=== PATIENT | male | born 1990 | race Caucasian/White ===

== ENCOUNTER 2018-01-11 08:30 | Emergency (ER) | payer MEDICAID, OTHER ==
[~2018-01-11] VITALS: Ht 182.9 cm; Wt 63.9 kg
[2018-01-11] MEDS ORDERED: METOCLOPRAMIDE 5 MG/ML, 2ML ONE (08:58)
[2018-01-11] MEDS ORDERED: MORPHINE SULFATE 4 MG/ML, 1ML ONE (08:58)
[2018-01-11] MEDS ORDERED: MORPHINE SULFATE 4 MG/ML, 1ML IVPush PRN (09:00)
[2018-01-11] MEDS ORDERED: SODIUM CHLORIDE FLUSH 10ML SYR IVF ONE (09:00)
[2018-01-11] MEDS ORDERED: METOCLOPRAMIDE 5 MG/ML, 2ML IVPush ONE (09:00)
[2018-01-11 09:20] LABS: BASOPHILS # (AUTO) 0.02 x10^3/uL (0-0.1); BASOPHILS % (AUTO) 0 % (0-1); EOSINOPHILS # (AUTO) 0.07 x10^3/uL (0-0.4); EOSINOPHILS % (AUTO) 1 % (1-7); LYMPHOCYTES % (AUTO) 13 % (22-44); MD NO; MEAN CORPUSCULAR HEMOGLOBIN 33.2 pg (27.5-34.5); MEAN CORPUSCULAR HGB CONC 34.1 g/dL (33.2-36.2); MEAN CORPUSCULAR VOLUME 97.3 fL (81-97); MEAN PLATELET VOLUME 8.9 fL (7.4-10.4); MONOCYTES # (AUTO) 0.51 x10^3/uL (0.2-0.8); MONOCYTES % (AUTO) 6 % (2-9); NEUTROPHILS # (AUTO) 7.33 x10^3/uL (1.8-6.8); NEUTROPHILS % (AUTO) 80 % (42-75); PLATELET COUNT 201 x10^3/uL (130-400); RED BLOOD COUNT 4.87 x10^6/uL (4.38-5.82); RED CELL DISTRIBUTION WIDTH 13.2 % (9.4-14.8)
[2018-01-11 09:30] LABS: ALANINE AMINOTRANSFERASE 58 U/L (12-78); ALBUMIN 3.9 g/dL (3.4-5.0); ANION GAP 8 mmol/L (5-15); CALCIUM 8.6 mg/dL (8.5-10.1); CHLORIDE 106 mmol/L (98-107)
[2018-01-11 09:33] LABS: ALKALINE PHOSPHATASE 79 U/L (45-117); BILIRUBIN,TOTAL 0.9 mg/dL (0.2-1.0); CREATININE 1.23 mg/dL (0.7-1.3)
[2018-01-11] MEDS ORDERED: ONDANSETRON ODT 4 MG ONE (09:47)
[2018-01-11] MEDS ORDERED: KETOROLAC 30 MG/1 ML ONE (09:47)
[2018-01-11] MEDS ORDERED: TAMSULOSIN 0.4 MG CAP.ER.24H ONE (09:48)
[2018-01-11] MEDS ORDERED: ONDANSETRON ODT 4 MG PO ONE (10:00)
[2018-01-11] MEDS ORDERED: TAMSULOSIN 0.4 MG CAP.ER.24H PO ONE (10:00)
[2018-01-11] MEDS ORDERED: KETOROLAC 30 MG/1 ML IVPush ONE (10:00)
[2018-01-11 11:20] LABS: CULTURE INDICATED? YES; MICROSCOPIC INDICATED
[2018-01-11 11:57] VITALS: BP 126/71
== END 2018-01-11 12:00 | disposition home or self-care (01) ==
LOC: ED 09:08
DX: N13.2 Hydronephrosis with renal and ureteral calculous obstruction (principal); R31.9 Hematuria, unspecified
CPT/HCPCS: 36415; 74176; 80053; 81001; 83690; 85025; 87086; 93005; 96374; 96375; 99285; J1885; J2765; Q0162

== ENCOUNTER 2019-01-21 14:17 | Emergency (ER) | payer MEDICAID, OTHER ==
[~2019-01-21] VITALS: Ht 182.9 cm; Wt 64.3 kg
[2019-01-21 14:37] LABS: BASOPHILS # (AUTO) 0.04 x10^3/uL (0-0.1); BASOPHILS % (AUTO) 1 % (0-1); EOSINOPHILS # (AUTO) 0.05 x10^3/uL (0-0.4); EOSINOPHILS % (AUTO) 1 % (1-7); LYMPHOCYTES # (AUTO) 1.19 x10^3/uL (1-3.4); LYMPHOCYTES % (AUTO) 16 % (22-44); MD NO; MEAN CORPUSCULAR HEMOGLOBIN 34.4 pg (27.5-34.5); MEAN CORPUSCULAR HGB CONC 33.2 g/dL (33.2-36.2); MEAN CORPUSCULAR VOLUME 103.5 fL (81-97); MEAN PLATELET VOLUME 8.5 fL (7.4-10.4); MONOCYTES # (AUTO) 0.43 x10^3/uL (0.2-0.8); MONOCYTES % (AUTO) 6 % (2-9); NEUTROPHILS # (AUTO) 5.77 x10^3/uL (1.8-6.8); NEUTROPHILS % (AUTO) 77 % (42-75); PLATELET COUNT 181 x10^3/uL (130-400); RED BLOOD COUNT 4.87 x10^6/uL (4.38-5.82); RED CELL DISTRIBUTION WIDTH 13.9 % (9.4-14.8)
[2019-01-21 14:49] LABS: ALANINE AMINOTRANSFERASE 48 U/L (12-78); ALBUMIN 4.5 g/dL (3.4-5.0); ANION GAP 7 mmol/L (5-15); CALCIUM 9.2 mg/dL (8.5-10.1); CHLORIDE 105 mmol/L (98-107)
[2019-01-21 14:52] LABS: ALKALINE PHOSPHATASE 112 U/L (45-117); BILIRUBIN,TOTAL 0.2 mg/dL (0.2-1.0); CREATININE 1.04 mg/dL (0.7-1.3); TOTAL PROTEIN 7.9 g/dL (6.4-8.2)
--- NOTE | 2019-01-21 17:17 | NUR ---
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
--- NOTE | 2019-01-21 17:47 | NUR ---
PT REPORTS TINGLING AND VISSUAL LOSS INTERMIT OVER THE PAST THREE WEEKS AO4 AMBULATES WELL
[2019-01-21] MEDS ORDERED: LORazepam 0.5MG TABLET ONE (18:07)
[2019-01-21] MEDS ORDERED: SODIUM CHLORIDE 0.9% 1,000ML IVBOLUS ONE (18:30)
[2019-01-21] MEDS ORDERED: LORazepam 0.5MG TABLET PO ONE (18:30)
--- NOTE | 2019-01-21 18:45 | NUR ---
BREAK RN: ATTEMPTED TO START IV. PT REFUSED. ERP AT BEDSIDE TO EDUCATE PT ON NEED FOR IV. PT CONTINUES TO REFUSE.
--- NOTE | 2019-01-21 19:15 | NUR ---
REFUSES SECOND EKG REPORTED THIS TO REPA TO BE A DC
--- NOTE | 2019-01-21 19:16 | NUR ---
BREAK RN: PT ALERT, INTERACTING WELL, NO S/S/ DISTRESS. PT CLEARED FOR DISCHARGE, AMBULATING WELL UPON DEPARTURE.
[2019-01-21 19:17] VITALS: BP 114/102
== END 2019-01-21 19:19 | disposition home or self-care (01) ==
LOC: ED 19:13
DX: F10.10 Alcohol abuse, uncomplicated (principal); E87.5 Hyperkalemia
CPT/HCPCS: 36415; 80053; 80307; 83735; 85025; 93005; 99284

== ENCOUNTER 2019-02-20 16:59 | Emergency (ER) | payer SELFPAY ==
[~2019-02-20] VITALS: Ht 182.9 cm; Wt 64.7 kg
[2019-02-20 17:17] VITALS: BP 143/93
== END 2019-02-20 18:09 | disposition left against medical advice (07) ==
LOC: ED 17:42
DX: S91.311A Laceration without foreign body, right foot, initial encounter (principal); F17.200 Nicotine dependence, unspecified, uncomplicated; X58.XXXA Exposure to other specified factors, initial encounter; Y93.89 Activity, other specified; Y92.830 Public park as the place of occurrence of the external cause; Y99.8 Other external cause status
CPT/HCPCS: 99281

== ENCOUNTER 2020-10-19 11:11 | Inpatient (IN) | payer OTHER ==
[~2020-10-19] VITALS: Ht 182.9 cm; Wt 69.0 kg
--- NOTE | 2020-10-19 11:30 | NUR ---
PT AMBULATED BACK TO ROOM AT THIS TIME. PT BIB MOM VIA POV. PER PT HE HAS HAD ABD PRESSURE RADIATING TO BACK FOR 2 DAYS. PT ALSO STARTED VOMITTING TODAY, PT TOOK 400MG MOTRIN AT 0700. PT RESTING IN GURNEY, CARDIAC MONITORING IN PLACE, PT'S MOM AT BEDSIDE, YENNI AT THIS TIME, PT STATES PAIN IS 10/10, WCTM.
[2020-10-19] MEDS ORDERED: ONDANSETRON 2MG/ML, 2ML IVPush ONE (12:00)
[2020-10-19] MEDS ORDERED: FAMOTIDINE 20 MG/2 ML IVPush ONE (12:00)
[2020-10-19] MEDS ORDERED: SODIUM CHLORIDE 0.9% 1,000ML IVBOLUS ONE ×2 (12:00→14:30)
[2020-10-19] MEDS ORDERED: ONDANSETRON 2MG/ML, 2ML ONE (12:01)
[2020-10-19] MEDS ORDERED: MORPHINE SULFATE 4 MG/ML, 1ML ONE (12:02)
[2020-10-19] MEDS ORDERED: FAMOTIDINE 20 MG/2 ML ONE (12:02)
[2020-10-19] MEDS: MORPHINE SULFATE 4 MG/ML, 1ML IVPush PRN ×2 (12:10→17:05)
[2020-10-19 12:50] LABS: BASOPHILS % (AUTO) 0 % (0-1); EOSINOPHILS % (AUTO) 0 % (1-7); LYMPHOCYTES % (AUTO) 5 % (22-44); MEAN CORPUSCULAR HEMOGLOBIN 35.4 pg (27.5-34.5); MEAN CORPUSCULAR HGB CONC 34.6 g/dL (33.2-36.2); MEAN PLATELET VOLUME 10.4 fL (7.4-10.4); MONOCYTES % (AUTO) 6 % (2-9); NEUTROPHILS % (AUTO) 89 % (42-75); RED CELL DISTRIBUTION WIDTH 13.8 % (9.4-14.8)
[2020-10-19 12:57] LABS: ALANINE AMINOTRANSFERASE 160 U/L (12-78); ALBUMIN 3.9 g/dL (3.4-5.0); ANION GAP 12 mmol/L (5-15); CALCIUM 9.2 mg/dL (8.5-10.1); CHLORIDE 105 mmol/L (98-107); CREATININE 0.96 mg/dL (0.7-1.3)
[2020-10-19 13:01] LABS: ALKALINE PHOSPHATASE 141 U/L (45-117); BILIRUBIN,TOTAL 1.3 mg/dL (0.2-1.0); TOTAL PROTEIN 6.7 g/dL (6.4-8.2)
[2020-10-19 13:25] LABS: PLATELET COUNT 130 x10^3/uL (130-400)
[2020-10-19 13:26] LABS: MD SCAN
[2020-10-19] MEDS ORDERED: HYDROmorphone 1 MG/ML, 1ML INJ IV ONE ×2 (13:30→15:30)
[2020-10-19] MEDS ORDERED: HYDROmorphone 1 MG/ML, 1ML INJ ONE ×2 (13:37→15:18)
[2020-10-19] MEDS ORDERED: OMNIPAQUE 350 MG/ML, 100ML BOTTLE ONE (14:01)
[2020-10-19] MEDS ORDERED: hydrALAzine 20 MG/ML, 1ML ONE (15:18)
--- NOTE | 2020-10-19 15:21 | NUR ---
PT TO GO TO MED TELE PER HOSPITALIST.
[2020-10-19] MEDS ORDERED: LABETALOL 5MG/ML, 20ML IVPush ONE (15:30)
[2020-10-19] MEDS ORDERED: hydrALAzine 20 MG/ML, 1ML IVPush PRN (15:30)
[2020-10-19] MEDS ORDERED: hydrALAzine 20 MG/ML, 1ML IV ONE (15:30)
[2020-10-19] MEDS ORDERED: NICOTINE 14MG/24 HR PATCH.TD24 TD ONE (15:30)
[2020-10-19 15:57] LABS: BASOPHILS % (AUTO) 0 % (0-1); EOSINOPHILS % (AUTO) 0 % (1-7); MONOCYTES % (AUTO) 4 % (2-9); RED BLOOD COUNT 4.69 x10^6/uL (4.38-5.82)
[2020-10-19 16:08] LABS: LYMPHOCYTES % (AUTO) 4 % (22-44); MEAN CORPUSCULAR HEMOGLOBIN 35.9 pg (27.5-34.5); MEAN CORPUSCULAR HGB CONC 35.4 g/dL (33.2-36.2); MEAN PLATELET VOLUME 11.1 fL (7.4-10.4); NEUTROPHILS % (AUTO) 91 % (42-75); PLATELET COUNT 82 x10^3/uL (130-400); RED CELL DISTRIBUTION WIDTH 13.6 % (9.4-14.8)
[2020-10-19 16:16] LABS: INTERNATIONAL NORMALIZED RATIO 1.1 (0.93-1.1); PROTHROMBIN TIME 11.8 Seconds (9.6-11.5)
[2020-10-19 16:31] LABS: MD SCAN
[2020-10-19 17:11] VITALS: BP 181/109
[2020-10-19] MEDS: ONDANSETRON 2MG/ML, 2ML IVPush PRN (17:13)
[2020-10-19] MEDS ORDERED: LABETALOL 5MG/ML, 20ML IVPush PRN (17:30)
[2020-10-19] MEDS: HYDROmorphone 2 MG/ML, 1ML IVPush PRN ×2 (18:13→21:17)
[2020-10-19] MEDS: LACTATED RINGERS 1,000 ML IV SCH (18:13)
[2020-10-19 18:25] VITALS: BP 160/111
[2020-10-19 20:25] VITALS: BP 162/101
[2020-10-19] MEDS ORDERED: DILTIAZEM 5 MG/ML, 5ML IVPush ONE (21:00)
[2020-10-19 21:06] VITALS: BP 134/90
[2020-10-19] MEDS ORDERED: DILTIAZEM 125 MG in SODIUM CHLORIDE 0.9% 100 ML IV SCH (23:00)
[2020-10-19] MEDS ORDERED: MAGNESIUM SULFATE PMX 4GM/100M 100 ML IVPB ONE (23:00)
[2020-10-19 23:56] LABS: MICROSCOPIC INDICATED
[2020-10-20 00:06] LABS: AMPHETAMINE SCREEN, URINE Negative (Negative); BARBITURATE SCREEN, URINE Negative (Negative); BENZODIAZEPINE SCREEN, URINE Negative (Negative); CANNABINOID SCREEN, URINE Positive (Negative); COCAINE SCREEN, URINE Negative (Negative); METHADONE SCREEN, URINE Negative (Negative); OPIATE SCREEN, URINE Positive (Negative)
[2020-10-20] MEDS: ONDANSETRON 2MG/ML, 2ML IVPush PRN ×2 (01:14→07:40)
[2020-10-20] MEDS: HYDROmorphone 2 MG/ML, 1ML IVPush PRN ×7 (01:15→19:39)
[2020-10-20 01:18] VITALS: BP 159/128
[2020-10-20 03:18] VITALS: BP 164/104
[2020-10-20 05:56] LABS: CHLORIDE 104 mmol/L (98-107)
[2020-10-20 06:09] LABS: ALANINE AMINOTRANSFERASE 117 U/L (12-78); ALBUMIN 3.6 g/dL (3.4-5.0); ALKALINE PHOSPHATASE 113 U/L (45-117); ANION GAP 10 mmol/L (5-15); BILIRUBIN,TOTAL 0.7 mg/dL (0.2-1.0); CALCIUM 8.8 mg/dL (8.5-10.1); CHOL/HDL RATIO 1.7; CHOLESTEROL, TOTAL 128 mg/dL (140-239); CREATININE 0.74 mg/dL (0.7-1.3); HDL CHOL % 60 % (26-37); HDL CHOLESTEROL (DIRECT) 77 mg/dL (40-60); LDL CHOLESTEROL,CALCULATED 37 mg/dL (54-169); LDL/HDL RATIO 0.5 (0.5-3.0); TOTAL PROTEIN 6.7 g/dL (6.4-8.2); TRIGLYCERIDES 70 mg/dL (50-200); VLDL CHOLESTEROL 14 mg/dL (0-25)
[2020-10-20 07:41] VITALS: BP 147/100
[2020-10-20] MEDS: LACTATED RINGERS 1,000 ML IV SCH ×2 (07:59→18:38)
[2020-10-20] MEDS: DILTIAZEM 90 MG CAP.ER.12H PO SCH ×2 (07:59→19:09)
[2020-10-20] MEDS: LOSARTAN 50MG TABLET PO SCH (07:59)
[2020-10-20 10:53] VITALS: BP 136/83
[2020-10-20] MEDS: NICOTINE 14MG/24 HR PATCH.TD24 TD SCH (11:02)
[2020-10-20] MEDS ORDERED: LORazepam 2 MG/ML, 1ML IVPush ONE (12:30)
[2020-10-20 15:24] LABS: ANA SCREEN NEGATIVE (Negative)
[2020-10-20 17:13] LABS: TROPONIN I < 0.015 ng/mL (0.000-0.045)
[2020-10-20] MEDS ORDERED: CHLORDIAZEPOXIDE 25 MG CAPSULE PO PRN (19:30)
[2020-10-20] MEDS ORDERED: LORazepam 2 MG/ML, 1ML IVPush PRN (19:30)
[2020-10-20 19:35] VITALS: BP 150/93
[2020-10-20] MEDS ORDERED: TEMAZEPAM 15 MG CAPSULE PO ONE (22:00)
[2020-10-21] MEDS: HYDROmorphone 2 MG/ML, 1ML IVPush PRN ×5 (00:50→17:20)
[2020-10-21 02:00] VITALS: BP 146/89
[2020-10-21] MEDS: LACTATED RINGERS 1,000 ML IV SCH ×3 (02:34→19:21)
[2020-10-21 06:21] VITALS: BP 149/87
[2020-10-21 06:43] LABS: BASOPHILS % (AUTO) 0 % (0-1); EOSINOPHILS % (AUTO) 1 % (1-7); LYMPHOCYTES % (AUTO) 8 % (22-44); MEAN CORPUSCULAR HEMOGLOBIN 35.5 pg (27.5-34.5); MEAN PLATELET VOLUME 10.8 fL (7.4-10.4); MONOCYTES % (AUTO) 6 % (2-9); NEUTROPHILS % (AUTO) 84 % (42-75); RED BLOOD COUNT 4.45 x10^6/uL (4.38-5.82); RED CELL DISTRIBUTION WIDTH 13.9 % (9.4-14.8)
[2020-10-21 06:58] LABS: CHLORIDE 103 mmol/L (98-107)
[2020-10-21 07:04] LABS: ALANINE AMINOTRANSFERASE 69 U/L (12-78); ALBUMIN 2.8 g/dL (3.4-5.0); ALKALINE PHOSPHATASE 96 U/L (45-117); ANION GAP 6 mmol/L (5-15); BILIRUBIN,TOTAL 0.8 mg/dL (0.2-1.0); CALCIUM 8.6 mg/dL (8.5-10.1); CREATININE 0.64 mg/dL (0.7-1.3); TOTAL PROTEIN 5.6 g/dL (6.4-8.2)
[2020-10-21 07:52] LABS: PLATELET COUNT 71 x10^3/uL (130-400)
[2020-10-21 07:53] LABS: <PLATELET ESTIMATE> DECREASED; ANISOCYTOSIS 1+; LARGE PLATELETS 1+; MD MORPH REVIEW ONLY
[2020-10-21] MEDS ORDERED: PANTOPRAZOLE 40 MG IV IVPush SCH (09:00)
[2020-10-21] MEDS: DILTIAZEM 120 MG CAP.ER.12H PO SCH ×2 (09:18→21:13)
[2020-10-21] MEDS: LOSARTAN 50MG TABLET PO SCH (09:18)
[2020-10-21] MEDS: THIAMINE 100 MG in SODIUM CHLORIDE 0.9% 50 ML IV SCH (09:19)
[2020-10-21 09:38] LABS: HCT (SEDRATE) 46.5 % (39.2-51.8)
[2020-10-21 10:38] LABS: TROPONIN I < 0.015 ng/mL (0.000-0.045)
[2020-10-21] MEDS: NICOTINE 14MG/24 HR PATCH.TD24 TD SCH (11:00)
[2020-10-21 13:29] VITALS: BP 130/76
[2020-10-21 15:40] LABS: TROPONIN I < 0.015 ng/mL (0.000-0.045)
[2020-10-21] MEDS: CHLORDIAZEPOXIDE 25 MG CAPSULE PO SCH ×2 (16:54→21:13)
[2020-10-21 19:39] VITALS: BP 140/95
[2020-10-21 21:56] LABS: TROPONIN I < 0.015 ng/mL (0.000-0.045)
[2020-10-22] MEDS: LACTATED RINGERS 1,000 ML IV SCH ×5 (00:26→23:30)
[2020-10-22] MEDS: HYDROmorphone 2 MG/ML, 1ML IVPush PRN ×7 (00:27→23:33)
[2020-10-22 00:34] VITALS: BP 135/91
[2020-10-22] MEDS: PANTOPRAZOLE 40MG TABLET PO SCH (05:28)
[2020-10-22 06:16] LABS: BASOPHILS % (AUTO) 0 % (0-1); EOSINOPHILS % (AUTO) 2 % (1-7); LYMPHOCYTES % (AUTO) 13 % (22-44); MEAN CORPUSCULAR HEMOGLOBIN 35.3 pg (27.5-34.5); MEAN CORPUSCULAR HGB CONC 34.3 g/dL (33.2-36.2); MEAN PLATELET VOLUME 11.1 fL (7.4-10.4); MONOCYTES % (AUTO) 11 % (2-9); NEUTROPHILS % (AUTO) 73 % (42-75); PLATELET COUNT 58 x10^3/uL (130-400); RED BLOOD COUNT 3.88 x10^6/uL (4.38-5.82); RED CELL DISTRIBUTION WIDTH 13.9 % (9.4-14.8)
[2020-10-22 06:19] LABS: ALANINE AMINOTRANSFERASE 52 U/L (12-78); ALBUMIN 2.5 g/dL (3.4-5.0); ANION GAP 5 mmol/L (5-15); CALCIUM 7.9 mg/dL (8.5-10.1); CHLORIDE 106 mmol/L (98-107); CREATININE 0.71 mg/dL (0.7-1.3)
[2020-10-22 06:22] LABS: ALKALINE PHOSPHATASE 84 U/L (45-117); BILIRUBIN,TOTAL 0.7 mg/dL (0.2-1.0); TOTAL PROTEIN 5.3 g/dL (6.4-8.2)
[2020-10-22] MEDS: POTASSIUM CHLORIDE 40 MEQ in SODIUM CHLORIDE 0.9% 500 ML IV ONE ×2 (07:30→08:21)
[2020-10-22 07:36] LABS: MD SCAN
[2020-10-22 08:10] VITALS: BP 138/82
[2020-10-22] MEDS: THIAMINE 100 MG in SODIUM CHLORIDE 0.9% 50 ML IV SCH (08:21)
[2020-10-22] MEDS: DILTIAZEM 120 MG CAP.ER.12H PO SCH ×2 (08:24→20:16)
[2020-10-22] MEDS: LOSARTAN 50MG TABLET PO SCH (08:24)
[2020-10-22] MEDS: CHLORDIAZEPOXIDE 25 MG CAPSULE PO SCH ×3 (08:30→20:16)
[2020-10-22] MEDS ORDERED: POTASSIUM CHLORIDE 20 MEQ TAB.ER.PRT PO ONE (09:00)
[2020-10-22] MEDS: NICOTINE 14MG/24 HR PATCH.TD24 TD SCH (11:17)
[2020-10-22 12:07] VITALS: BP 132/79
[2020-10-22] MEDS ORDERED: MAGNESIUM SULFATE PMX 2GM/50ML 50 ML IV ONE (17:30)
[2020-10-22 20:08] VITALS: BP 138/79
[2020-10-23 00:45] VITALS: BP 123/74
[2020-10-23] MEDS: LACTATED RINGERS 1,000 ML IV SCH (04:00)
[2020-10-23] MEDS: HYDROmorphone 2 MG/ML, 1ML IVPush PRN ×2 (04:51→10:06)
[2020-10-23] MEDS: PANTOPRAZOLE 40MG TABLET PO SCH (06:36)
[2020-10-23 07:51] VITALS: BP 136/91
[2020-10-23 08:26] LABS: BASOPHILS % (AUTO) 1 % (0-1); EOSINOPHILS % (AUTO) 2 % (1-7); LYMPHOCYTES % (AUTO) 15 % (22-44); MEAN CORPUSCULAR HEMOGLOBIN 35.6 pg (27.5-34.5); MEAN CORPUSCULAR HGB CONC 34.5 g/dL (33.2-36.2); MEAN PLATELET VOLUME 9.5 fL (7.4-10.4); MONOCYTES % (AUTO) 13 % (2-9); NEUTROPHILS % (AUTO) 69 % (42-75); PLATELET COUNT 122 x10^3/uL (130-400); RED BLOOD COUNT 3.93 x10^6/uL (4.38-5.82); RED CELL DISTRIBUTION WIDTH 13.7 % (9.4-14.8)
[2020-10-23 08:35] LABS: ALANINE AMINOTRANSFERASE 46 U/L (12-78); ALBUMIN 2.7 g/dL (3.4-5.0); ANION GAP 7 mmol/L (5-15); CALCIUM 8.5 mg/dL (8.5-10.1); CHLORIDE 105 mmol/L (98-107); CREATININE 0.73 mg/dL (0.7-1.3); INTERNATIONAL NORMALIZED RATIO 1.01 (0.93-1.1); PROTHROMBIN TIME 10.8 Seconds (9.6-11.5)
[2020-10-23 08:38] LABS: ALKALINE PHOSPHATASE 87 U/L (45-117); BILIRUBIN,TOTAL 0.6 mg/dL (0.2-1.0)
[2020-10-23 09:00] LABS: MD SCAN
[2020-10-23] MEDS: CHLORDIAZEPOXIDE 25 MG CAPSULE PO SCH (09:57)
[2020-10-23] MEDS: THIAMINE 100 MG in SODIUM CHLORIDE 0.9% 50 ML IV SCH (09:57)
[2020-10-23] MEDS: NICOTINE 14MG/24 HR PATCH.TD24 TD SCH (09:57)
[2020-10-23] MEDS: LOSARTAN 50MG TABLET PO SCH (09:57)
[2020-10-23] MEDS: DILTIAZEM 120 MG CAP.ER.12H PO SCH (09:57)
[2020-10-23 12:20] VITALS: BP 127/77
[2020-10-23] MEDS ORDERED: LOSA50TA2 PO (13:16)
[2020-10-23] MEDS ORDERED: NICO-486 TD (13:16)
[2020-10-23] MEDS ORDERED: PANT40TA6 PO (13:16)
[2020-10-23] MEDS ORDERED: HYDR-826 PO (13:16)
[2020-10-23] MEDS ORDERED: DILT120C11 PO (13:16)
[2020-10-23] MEDS ORDERED: HYDR-3248 PO ×2 (13:16→13:28)
[2020-10-23] MEDS ORDERED: HYDROcodone/APAP 5/325 TABLET ONE (14:34)
[2020-10-23] MEDS ORDERED: HYDROcodone/APAP 5/325 TABLET PO PRN (15:00)
== END 2020-10-23 16:41 | disposition home or self-care (01) | DRG 439 ==
LOC: ED 11:42 → EDIP 14:35 → 4WST 16:46
PROVIDERS: ADMIT Internal Medicine; ATTEND Hospitalist
DX: K85.20 Alcohol induced acute pancreatitis without necrosis or infection (principal); I16.1 Hypertensive emergency; D75.89 Other specified diseases of blood and blood-forming organs; K85.00 Idiopathic acute pancreatitis without necrosis or infection; F10.129 Alcohol abuse with intoxication, unspecified; F17.200 Nicotine dependence, unspecified, uncomplicated; I48.91 Unspecified atrial fibrillation; K76.0 Fatty (change of) liver, not elsewhere classified; Y90.9 Presence of alcohol in blood, level not specified; Z71.41 Alcohol abuse counseling and surveillance of alcoholic
CPT/HCPCS: 36415; 71045; 74177; 74181; 76700; 80053; 80061; 80074; 80307; 80320; 81001; 82787; 82962; 83036; 83690; 83735; 84100; 84443; 84484; 85025; 85610; 85651; 86038; 86140; 87040; 93005; 93306; 93356; 96374; 99285; G0378; J1170; J2405; J3411; J3480; Q9967; C9113; G0480; J0360; J2060; J2270; J3475; J7030; J7040; J7120

== ENCOUNTER 2020-11-24 07:40 | Inpatient (IN) | payer OTHER ==
[~2020-11-24] VITALS: Ht 182.9 cm; Wt 61.7 kg
[2020-11-24] VITALS (7 sets, daily range): BP systolic 127–193; BP diastolic 89–120
[~2020-11-24 07:40] MED LIST: DILT120C11 PO; HYDR-3248 PO; HYDR-826 PO; LOSA50TA2 PO; METO25TA35 PO; NICO-486 TD; PANT40TA6 PO
[2020-11-24] MEDS ORDERED: ONDANSETRON 2MG/ML, 2ML IVPush ONE (08:30)
[2020-11-24] MEDS ORDERED: SODIUM CHLORIDE 0.9% 1,000ML IVBOLUS ONE (08:30)
[2020-11-24] MEDS ORDERED: SODIUM CHLORIDE FLUSH 10ML SYR IVF ONE (08:30)
[2020-11-24] MEDS ORDERED: ONDANSETRON 2MG/ML, 2ML ONE (08:35)
[2020-11-24] MEDS ORDERED: MORPHINE SULFATE 4 MG/ML, 1ML ONE ×2 (08:35→09:57)
[2020-11-24] MEDS: MORPHINE SULFATE 4 MG/ML, 1ML IVPush PRN ×2 (08:46→10:00)
[2020-11-24 09:05] LABS: MICROSCOPIC INDICATED
[2020-11-24 09:09] LABS: BASOPHILS % (AUTO) 0 % (0-1); EOSINOPHILS % (AUTO) 0 % (1-7); LYMPHOCYTES % (AUTO) 6 % (22-44); MEAN CORPUSCULAR HEMOGLOBIN 34.5 pg (27.5-34.5); MEAN CORPUSCULAR HGB CONC 34.2 g/dL (33.2-36.2); MEAN PLATELET VOLUME 10.6 fL (7.4-10.4); MONOCYTES % (AUTO) 8 % (2-9); NEUTROPHILS % (AUTO) 86 % (42-75); PLATELET COUNT 137 x10^3/uL (130-400); RED BLOOD COUNT 4.77 x10^6/uL (4.38-5.82); RED CELL DISTRIBUTION WIDTH 13.6 % (9.4-14.8)
[2020-11-24 09:16] LABS: ALANINE AMINOTRANSFERASE 103 U/L (12-78); ALBUMIN 4.4 g/dL (3.4-5.0); ANION GAP 12 mmol/L (5-15); CALCIUM 9.6 mg/dL (8.5-10.1); CHLORIDE 101 mmol/L (98-107); CREATININE 0.79 mg/dL (0.7-1.3)
[2020-11-24 09:18] LABS: ALKALINE PHOSPHATASE 130 U/L (45-117); BILIRUBIN,TOTAL 1.3 mg/dL (0.2-1.0); TOTAL PROTEIN 7.8 g/dL (6.4-8.2)
[2020-11-24 09:27] LABS: MD SCAN
[2020-11-24] MEDS ORDERED: ACETAMINOPHEN 325 MG TABLET PO PRN (10:00)
[2020-11-24] MEDS ORDERED: ONDANSETRON ODT 4 MG PO PRN (10:00)
[2020-11-24] MEDS ORDERED: ENALAPRILAT 1.25 MG/ML, 2ML IVPush PRN (10:00)
[2020-11-24] MEDS ORDERED: BACLOFEN 10 MG TABLET PO PRN (10:00)
[2020-11-24] MEDS ORDERED: BUTALB/APAP/CAFFEINE 50MG/325MG/40MG PO PRN (10:00)
[2020-11-24] MEDS: D5%-0.45NACL+KCL 20MEQ 1,000 ML IV SCH ×2 (10:00→20:08)
[2020-11-24] MEDS: HYDROmorphone 2 MG/ML, 1ML IVPush PRN ×6 (10:38→23:51)
[2020-11-24] MEDS: LABETALOL 5MG/ML, 20ML IVPush PRN ×2 (13:10→15:58)
[2020-11-24] MEDS ORDERED: ENALAPRILAT 1.25 MG/ML, 1ML ONE (14:04)
[2020-11-24] MEDS: MELATONIN 5 MG TABLET PO SCH (21:00)
[2020-11-24] MEDS: ONDANSETRON 2MG/ML, 2ML IVPush PRN (23:51)
[2020-11-25 00:06] VITALS: BP 134/85
[2020-11-25] MEDS: HYDROmorphone 2 MG/ML, 1ML IVPush PRN ×6 (03:14→23:16)
[2020-11-25 05:23] LABS: BASOPHILS % (AUTO) 0 % (0-1); EOSINOPHILS % (AUTO) 1 % (1-7); LYMPHOCYTES % (AUTO) 5 % (22-44); MEAN CORPUSCULAR HEMOGLOBIN 34.3 pg (27.5-34.5); MEAN CORPUSCULAR HGB CONC 33.5 g/dL (33.2-36.2); MEAN PLATELET VOLUME 10.4 fL (7.4-10.4); MONOCYTES % (AUTO) 6 % (2-9); NEUTROPHILS % (AUTO) 88 % (42-75); PLATELET COUNT 101 x10^3/uL (130-400); RED BLOOD COUNT 4.45 x10^6/uL (4.38-5.82); RED CELL DISTRIBUTION WIDTH 13.6 % (9.4-14.8)
[2020-11-25 05:27] LABS: ANION GAP 4 mmol/L (5-15); CHLORIDE 100 mmol/L (98-107); CREATININE 0.68 mg/dL (0.7-1.3)
[2020-11-25 06:12] LABS: MD SCAN
[2020-11-25] MEDS: D5%-0.45NACL+KCL 20MEQ 1,000 ML IV SCH ×2 (06:33→23:10)
[2020-11-25 07:54] VITALS: BP 115/73
[2020-11-25] MEDS ORDERED: MAGNESIUM SULFATE PMX 2GM/50ML 50 ML IV ONE (08:30)
[2020-11-25 08:55] LABS: CHOL/HDL RATIO 1.8; LDL/HDL RATIO 0.6 (0.5-3.0)
[2020-11-25] MEDS: SENNA/DOCUSATE TABLET PO SCH (08:59)
[2020-11-25] MEDS ORDERED: NICOTINE 14MG/24 HR PATCH.TD24 TD ONE (11:00)
[2020-11-25] MEDS ORDERED: SODIUM CHLORIDE 0.9% 1,000ML IV ONE (12:30)
[2020-11-25 12:35] VITALS: BP 115/72
[2020-11-25 18:49] VITALS: BP 118/81
[2020-11-25] MEDS: ONDANSETRON 2MG/ML, 2ML IVPush PRN (19:59)
[2020-11-25] MEDS: MELATONIN 5 MG TABLET PO SCH (21:20)
[2020-11-25] MEDS: ENOXAPARIN 40 MG/0.4 ML SQ SCH (21:25)
[2020-11-26 01:19] VITALS: BP 133/72
[2020-11-26] MEDS: HYDROmorphone 2 MG/ML, 1ML IVPush PRN ×4 (04:09→22:07)
[2020-11-26 05:24] LABS: BASOPHILS % (AUTO) 1 % (0-1); EOSINOPHILS % (AUTO) 3 % (1-7); LYMPHOCYTES % (AUTO) 19 % (22-44); MEAN CORPUSCULAR HEMOGLOBIN 34.5 pg (27.5-34.5); MEAN CORPUSCULAR HGB CONC 33.5 g/dL (33.2-36.2); MEAN PLATELET VOLUME 10.9 fL (7.4-10.4); MONOCYTES % (AUTO) 9 % (2-9); NEUTROPHILS % (AUTO) 69 % (42-75); PLATELET COUNT 79 x10^3/uL (130-400); RED BLOOD COUNT 3.83 x10^6/uL (4.38-5.82); RED CELL DISTRIBUTION WIDTH 13.6 % (9.4-14.8)
[2020-11-26 05:31] LABS: ALBUMIN 2.9 g/dL (3.4-5.0); ANION GAP 3 mmol/L (5-15); CALCIUM 8.6 mg/dL (8.5-10.1); CHLORIDE 103 mmol/L (98-107)
[2020-11-26 05:33] LABS: CREATININE 0.64 mg/dL (0.7-1.3)
[2020-11-26 05:58] LABS: MD SCAN
[2020-11-26 07:00] VITALS: BP 144/81
[2020-11-26] MEDS ORDERED: POTASSIUM PHOSPHATE 44 MEQ in SODIUM CHLORIDE 0.9% 500 ML IV ONE (07:30)
[2020-11-26] MEDS: SENNA/DOCUSATE TABLET PO SCH (08:27)
[2020-11-26] MEDS ORDERED: MAGNESIUM HYDROXIDE 8%, 30ML UDC PO PRN (10:00)
[2020-11-26] MEDS: D5%-0.45NACL+KCL 20MEQ 1,000 ML IV SCH ×2 (10:30→19:03)
[2020-11-26] MEDS: NICOTINE 14MG/24 HR PATCH.TD24 TD SCH (10:35)
[2020-11-26 12:26] VITALS: BP 138/79
[2020-11-26 19:05] VITALS: BP 136/89
[2020-11-26] MEDS: ENOXAPARIN 40 MG/0.4 ML SQ SCH (21:11)
[2020-11-26] MEDS: MELATONIN 5 MG TABLET PO SCH (21:11)
[2020-11-27 00:26] VITALS: BP 117/76
[2020-11-27] MEDS: D5%-0.45NACL+KCL 20MEQ 1,000 ML IV SCH ×2 (05:33→16:00)
[2020-11-27 06:32] VITALS: BP 135/92
[2020-11-27] MEDS: HYDROmorphone 2 MG/ML, 1ML IVPush PRN (08:39)
[2020-11-27] MEDS: SENNA/DOCUSATE TABLET PO SCH (08:39)
[2020-11-27] MEDS: NICOTINE 14MG/24 HR PATCH.TD24 TD SCH (08:40)
[2020-11-27 13:39] VITALS: BP 142/90
[2020-11-27] MEDS ORDERED: OXYC5TAB2 PO (13:39)
[2020-11-27] MEDS ORDERED: OXYC5TAB98 PO (13:41)
== END 2020-11-27 16:56 | disposition home or self-care (01) | DRG 640 ==
LOC: ED 07:51 → EDIP 09:35 → 3N 10:13
PROVIDERS: ADMIT Family Medicine; ATTEND Family Medicine
DX: E87.1 Hypo-osmolality and hyponatremia (principal); K85.90 Acute pancreatitis without necrosis or infection, unspecified; N39.0 Urinary tract infection, site not specified; D75.89 Other specified diseases of blood and blood-forming organs; E83.42 Hypomagnesemia; E86.0 Dehydration; F10.10 Alcohol abuse, uncomplicated; F12.90 Cannabis use, unspecified, uncomplicated; F17.210 Nicotine dependence, cigarettes, uncomplicated; Z79.899 Other long term (current) drug therapy; E83.39 Other disorders of phosphorus metabolism; Z79.891 Long term (current) use of opiate analgesic
CPT/HCPCS: 36415; 80048; 80053; 80061; 80069; 81001; 83036; 83690; 83735; 85025; 87086; 93005; 99285; G0378; J1170; J1650; J2405; J2270; J3475; J3480; J7030; J7040

== ENCOUNTER 2021-04-03 01:26 | Inpatient (IN) | payer MEDICAID ==
[~2021-04-03] VITALS: Ht 182.9 cm; Wt 65.9 kg
[~2021-04-03 01:26] MED LIST changes: +OXYC5TAB2 PO; +OXYC5TAB98 PO
--- NOTE | 2021-04-03 01:36 | NUR ---
BIBA FOR LUQ ABD PAIN STARTING 3 DAYS AGO. +N/V. PT STATES IT FEELS LIKE PANCREATITIS. ADMITS TO DRINKING 1-2 BEERS A WEEK WITH LAST BEER BEING 3 DAYS AGO. PT RECEIVED 200 MG FENTANYL EN ROUTE AND 4 MG ZOFRAN AND 250 ML NS WITH IMPROVEMENT OF PAIN FROM 04/28 TO 02/25.
[2021-04-03 02:25] LABS: BASOPHILS % (AUTO) 0 % (0-1); EOSINOPHILS % (AUTO) 0 % (1-7); LYMPHOCYTES % (AUTO) 5 % (22-44); MEAN CORPUSCULAR HEMOGLOBIN 32.4 pg (27.5-34.5); MEAN CORPUSCULAR HGB CONC 34.4 g/dL (33.2-36.2); MEAN PLATELET VOLUME 9.4 fL (7.4-10.4); MONOCYTES % (AUTO) 6 % (2-9); NEUTROPHILS % (AUTO) 88 % (42-75); PLATELET COUNT 237 x10^3/uL (130-400); RED BLOOD COUNT 4.96 x10^6/uL (4.38-5.82); RED CELL DISTRIBUTION WIDTH 13.6 % (9.4-14.8)
[2021-04-03] MEDS ORDERED: MORPHINE SULFATE 4 MG/ML, 1ML ONE (02:25)
[2021-04-03] MEDS ORDERED: FAMOTIDINE 20 MG/2 ML ONE (02:25)
[2021-04-03] MEDS ORDERED: ONDANSETRON 2MG/ML, 2ML ONE (02:25)
[2021-04-03 02:29] LABS: ALANINE AMINOTRANSFERASE 50 U/L (12-78); ANION GAP 14 mmol/L (5-15); CALCIUM 9.3 mg/dL (8.5-10.1); CHLORIDE 104 mmol/L (98-107); CREATININE 0.88 mg/dL (0.7-1.3)
[2021-04-03] MEDS: MORPHINE SULFATE 4 MG/ML, 1ML IVPush PRN ×2 (02:29→05:02)
[2021-04-03] MEDS ORDERED: THIAMINE 200 MG in SODIUM CHLORIDE 0.9% 50 ML IV ONE (02:30)
[2021-04-03] MEDS ORDERED: FAMOTIDINE 20 MG/2 ML IVPush ONE (02:30)
[2021-04-03] MEDS ORDERED: SODIUM CHLORIDE 0.9% 1,000ML IVBOLUS ONE (02:30)
[2021-04-03] MEDS ORDERED: ONDANSETRON 2MG/ML, 2ML IVPush ONE (02:30)
[2021-04-03] MEDS ORDERED: SODIUM CHLORIDE FLUSH 10ML SYR IVF ONE (02:30)
[2021-04-03 02:50] LABS: ALKALINE PHOSPHATASE 107 U/L (45-117); BILIRUBIN,TOTAL 0.7 mg/dL (0.2-1.0); TOTAL PROTEIN 7.5 g/dL (6.4-8.2)
--- NOTE | 2021-04-03 02:52 | NUR ---
REPORT GIVEN TO TARA MOSHER
--- NOTE | 2021-04-03 03:48 | NUR ---
NOTIFIED HOSPITALIST OF PT REQUEST FOR PAIN MEDS. SEE EMAR FOR NEW ORDERS
[2021-04-03] MEDS ORDERED: HYDROmorphone 1 MG/ML, 1ML INJ IV ONE (04:00)
[2021-04-03] MEDS ORDERED: MELATONIN 5 MG TABLET PO PRN (04:00)
[2021-04-03] MEDS ORDERED: HYDROmorphone 2 MG/ML, 1ML IVPush PRN (04:00)
[2021-04-03] MEDS ORDERED: DOCUSATE 100 MG CAPSULE PO PRN (04:00)
[2021-04-03] MEDS ORDERED: BISACODYL 10 MG SUPP PR PRN (04:00)
[2021-04-03] MEDS ORDERED: LORazepam 1MG TABLET PO PRN (04:00)
[2021-04-03] MEDS ORDERED: POTASSIUM CHLORIDE 10 MEQ in LACTATED RINGERS 1,000 ML IV SCH (04:00)
[2021-04-03] MEDS ORDERED: OXYcodone IR 5MG TABLET PO PRN (04:00)
[2021-04-03] MEDS ORDERED: KETOROLAC 30 MG/1 ML IV PRN (04:00)
[2021-04-03] MEDS ORDERED: ACETAMINOPHEN 650 MG SUPP PR PRN (04:00)
[2021-04-03] MEDS ORDERED: ACETAMINOPHEN 325 MG TABLET PO PRN (04:00)
[2021-04-03] MEDS ORDERED: BACLOFEN 10 MG TABLET PO PRN (04:00)
[2021-04-03] MEDS ORDERED: LORazepam 2 MG/ML, 1ML IV PRN ×2 (04:00)
[2021-04-03] MEDS ORDERED: LORazepam 0.5MG TABLET PO PRN (04:00)
[2021-04-03] MEDS ORDERED: LABETALOL 5MG/ML, 20ML IVPush PRN (04:00)
[2021-04-03 04:55] VITALS: BP 195/105
[2021-04-03] MEDS: ENOXAPARIN 40 MG/0.4 ML SQ SCH (05:23)
[2021-04-03] MEDS: POTASSIUM CHLORIDE 20 MEQ, MAGNESIUM SULFATE 1 GM, FOLIC ACID 1 MG, THIAMINE 200 MG, MV... IV SCH (06:26)
[2021-04-03 06:42] VITALS: BP 123/72
[2021-04-03] MEDS ORDERED: MAGNESIUM SULFATE PMX 2GM/50ML 50 ML IV ONE (08:30)
[2021-04-03] MEDS: FAMOTIDINE 20 MG/2 ML IVPush SCH ×2 (09:39→20:06)
[2021-04-03] MEDS: OXYcodone IR 5MG TABLET PO PRN ×5 (09:39→22:36)
[2021-04-03] MEDS: LACTOBACILLUS CHEW TABLET PO SCH ×3 (09:39→20:08)
[2021-04-03] MEDS: MULTIVITAMINS/MINERALS TABLET PO SCH (09:39)
[2021-04-03] MEDS: ONDANSETRON 2MG/ML, 2ML IVPush PRN ×2 (09:57→16:02)
[2021-04-03] MEDS: KETOROLAC 30 MG/1 ML IV PRN ×3 (11:09→22:36)
[2021-04-03] MEDS: NICOTINE 21 MG/24 HR PATCH.TD24 TD SCH (11:12)
[2021-04-03] MEDS: morphine SULFATE 10 MG/ML, 1ML IVPush PRN ×3 (11:55→12:36)
[2021-04-03 12:32] VITALS: BP 181/109
[2021-04-03] MEDS ORDERED: morphine SULFATE 10 MG/ML, 1ML IVPush PRN (13:00)
[2021-04-03] MEDS: HYDROmorphone 1 MG/ML, 1ML INJ IV PRN ×2 (13:59→20:06)
[2021-04-03] MEDS: SODIUM CHLORIDE 0.9% 1,000 ML IV SCH (15:34)
[2021-04-03 20:30] VITALS: BP 172/89
[2021-04-04 00:53] VITALS: BP 126/79
[2021-04-04] MEDS: HYDROmorphone 1 MG/ML, 1ML INJ IV PRN ×4 (02:27→21:05)
[2021-04-04] MEDS: ONDANSETRON 2MG/ML, 2ML IVPush PRN ×4 (05:09→23:39)
[2021-04-04] MEDS: KETOROLAC 30 MG/1 ML IV PRN ×4 (05:10→23:40)
[2021-04-04] MEDS: OXYcodone IR 5MG TABLET PO PRN ×5 (05:10→23:39)
[2021-04-04] MEDS: ENOXAPARIN 40 MG/0.4 ML SQ SCH (05:12)
[2021-04-04] MEDS: POTASSIUM CHLORIDE 20 MEQ, MAGNESIUM SULFATE 1 GM, FOLIC ACID 1 MG, THIAMINE 200 MG, MV... IV SCH (06:16)
[2021-04-04 07:32] LABS: BASOPHILS % (AUTO) 0 % (0-1); EOSINOPHILS % (AUTO) 1 % (1-7); LYMPHOCYTES % (AUTO) 7 % (22-44); MEAN CORPUSCULAR HEMOGLOBIN 32.5 pg (27.5-34.5); MEAN CORPUSCULAR HGB CONC 34.3 g/dL (33.2-36.2); MEAN PLATELET VOLUME 9.8 fL (7.4-10.4); MONOCYTES % (AUTO) 7 % (2-9); NEUTROPHILS % (AUTO) 86 % (42-75); PLATELET COUNT 119 x10^3/uL (130-400); RED CELL DISTRIBUTION WIDTH 13.7 % (9.4-14.8)
[2021-04-04 07:39] LABS: ALANINE AMINOTRANSFERASE 31 U/L (12-78); ALBUMIN 2.9 g/dL (3.4-5.0); ANION GAP 8 mmol/L (5-15); CALCIUM 8.4 mg/dL (8.5-10.1); CHLORIDE 104 mmol/L (98-107)
[2021-04-04 07:41] LABS: ALKALINE PHOSPHATASE 83 U/L (45-117); BILIRUBIN,TOTAL 0.8 mg/dL (0.2-1.0)
[2021-04-04] MEDS ORDERED: HYDROmorphone 2 MG/ML, 1ML ONE (07:56)
[2021-04-04 08:00] VITALS: BP 122/76
[2021-04-04] MEDS: NICOTINE 21 MG/24 HR PATCH.TD24 TD SCH (08:00)
[2021-04-04] MEDS: MULTIVITAMINS/MINERALS TABLET PO SCH (08:00)
[2021-04-04] MEDS: LACTOBACILLUS CHEW TABLET PO SCH ×3 (08:00→21:05)
[2021-04-04] MEDS: FAMOTIDINE 20 MG/2 ML IVPush SCH ×2 (08:01→21:05)
[2021-04-04 08:11] VITALS: BP 124/70
[2021-04-04] MEDS: SODIUM CHLORIDE 0.9% 1,000 ML IV SCH (12:24)
[2021-04-04 12:29] VITALS: BP 125/83
[2021-04-04 19:55] VITALS: BP 107/63
[2021-04-05 01:33] VITALS: BP 110/70
[2021-04-05] MEDS: HYDROmorphone 1 MG/ML, 1ML INJ IV PRN (02:43)
[2021-04-05] MEDS: SODIUM CHLORIDE 0.9% 1,000 ML IV SCH (02:43)
[2021-04-05] MEDS: ENOXAPARIN 40 MG/0.4 ML SQ SCH (05:15)
[2021-04-05] MEDS: POTASSIUM CHLORIDE 20 MEQ, MAGNESIUM SULFATE 1 GM, FOLIC ACID 1 MG, THIAMINE 200 MG, MV... IV SCH (05:44)
[2021-04-05] MEDS: KETOROLAC 30 MG/1 ML IV PRN ×3 (05:44→18:48)
[2021-04-05] MEDS: OXYcodone IR 5MG TABLET PO PRN ×4 (05:44→18:49)
[2021-04-05] MEDS: ONDANSETRON 2MG/ML, 2ML IVPush PRN ×3 (05:44→18:48)
[2021-04-05 06:26] LABS: BASOPHILS % (AUTO) 1 % (0-1); EOSINOPHILS % (AUTO) 3 % (1-7); LYMPHOCYTES % (AUTO) 19 % (22-44); MEAN CORPUSCULAR HEMOGLOBIN 32.6 pg (27.5-34.5); MEAN CORPUSCULAR HGB CONC 34.1 g/dL (33.2-36.2); MONOCYTES % (AUTO) 9 % (2-9); NEUTROPHILS % (AUTO) 69 % (42-75); PLATELET COUNT 108 x10^3/uL (130-400); RED BLOOD COUNT 4.14 x10^6/uL (4.38-5.82); RED CELL DISTRIBUTION WIDTH 13.4 % (9.4-14.8)
[2021-04-05] MEDS: LACTOBACILLUS CHEW TABLET PO SCH ×3 (09:00→21:00)
[2021-04-05] MEDS: NICOTINE 21 MG/24 HR PATCH.TD24 TD SCH (09:25)
[2021-04-05] MEDS: FAMOTIDINE 20 MG/2 ML IVPush SCH (09:25)
[2021-04-05] MEDS: MULTIVITAMINS/MINERALS TABLET PO SCH (09:25)
[2021-04-05 09:34] VITALS: BP 119/73
[2021-04-05] MEDS: ACETAMINOPHEN 325 MG TABLET PO PRN ×2 (09:36→16:29)
[2021-04-05 15:54] VITALS: BP 134/82
[2021-04-05 20:40] VITALS: BP 135/87
[2021-04-05] MEDS: FAMOTIDINE 20 MG TABLET PO SCH (21:16)
[2021-04-06] MEDS: OXYcodone IR 5MG TABLET PO PRN ×3 (01:03→14:18)
[2021-04-06] MEDS: KETOROLAC 30 MG/1 ML IV PRN ×3 (01:03→14:19)
[2021-04-06] MEDS: ONDANSETRON 2MG/ML, 2ML IVPush PRN ×3 (01:03→14:24)
[2021-04-06 01:08] VITALS: BP 145/89
[2021-04-06] MEDS: ACETAMINOPHEN 325 MG TABLET PO PRN ×2 (06:18→12:35)
[2021-04-06] MEDS: ENOXAPARIN 40 MG/0.4 ML SQ SCH (06:19)
[2021-04-06 06:43] LABS: CHLORIDE 107 mmol/L (98-107)
[2021-04-06 06:52] LABS: ALANINE AMINOTRANSFERASE 26 U/L (12-78); ALBUMIN 2.5 g/dL (3.4-5.0); ALKALINE PHOSPHATASE 80 U/L (45-117); ANION GAP 3 mmol/L (5-15); BILIRUBIN,TOTAL 0.5 mg/dL (0.2-1.0); CALCIUM 8.9 mg/dL (8.5-10.1); CREATININE 0.91 mg/dL (0.7-1.3); TOTAL PROTEIN 5.8 g/dL (6.4-8.2)
[2021-04-06 08:24] VITALS: BP 151/88
[2021-04-06] MEDS: NICOTINE 21 MG/24 HR PATCH.TD24 TD SCH (09:34)
[2021-04-06] MEDS: LACTOBACILLUS CHEW TABLET PO SCH (09:34)
[2021-04-06] MEDS: FAMOTIDINE 20 MG TABLET PO SCH (09:34)
[2021-04-06] MEDS: MULTIVITAMINS/MINERALS TABLET PO SCH (09:34)
[2021-04-06] MEDS ORDERED: OXYC5TAB98 PO (13:43)
[2021-04-06] MEDS ORDERED: ONDA4TAB13 SL (13:43)
[2021-04-06 14:04] VITALS: BP 142/95
== END 2021-04-06 16:35 | disposition home or self-care (01) | DRG 440 ==
LOC: ED 01:49 → EDIP 03:21 → 4EST 04:50
PROVIDERS: ADMIT Internal Medicine; ATTEND Internal Medicine
DX: K85.20 Alcohol induced acute pancreatitis without necrosis or infection (principal); E83.42 Hypomagnesemia; E83.51 Hypocalcemia; F10.10 Alcohol abuse, uncomplicated; F12.90 Cannabis use, unspecified, uncomplicated; F17.200 Nicotine dependence, unspecified, uncomplicated; F19.10 Other psychoactive substance abuse, uncomplicated; I10 Essential (primary) hypertension
CPT/HCPCS: 36415; 96374; 96375; 99285; J7121; 80053; 80320; 82330; 83690; 83735; 84100; 85025; G0378; J1170; J1650; J1885; J2405; J3411; J3475; J3480; G0480; J2270; J7030

== ENCOUNTER 2021-05-04 00:36 | Inpatient (IN) | payer MEDICAID ==
[~2021-05-04] VITALS: Ht 182.9 cm; Wt 64.2 kg
[~2021-05-04 00:36] MED LIST changes: +ONDA4TAB13 SL
[2021-05-04] MEDS ORDERED: SODIUM CHLORIDE FLUSH 10ML SYR IVF ONE (01:30)
[2021-05-04] MEDS ORDERED: ONDANSETRON 2MG/ML, 2ML IVPush ONE (01:30)
[2021-05-04] MEDS ORDERED: SODIUM CHLORIDE 0.9% 1,000ML IVBOLUS ONE (01:30)
[2021-05-04 01:43] LABS: BASOPHILS % (AUTO) 0 % (0-1); EOSINOPHILS % (AUTO) 1 % (1-7); LYMPHOCYTES % (AUTO) 19 % (22-44); MEAN CORPUSCULAR HEMOGLOBIN 33.1 pg (27.5-34.5); MEAN PLATELET VOLUME 9.7 fL (7.4-10.4); MONOCYTES % (AUTO) 8 % (2-9); NEUTROPHILS % (AUTO) 71 % (42-75); PLATELET COUNT 180 x10^3/uL (130-400); RED CELL DISTRIBUTION WIDTH 14.4 % (9.4-14.8)
[2021-05-04 01:47] LABS: ALBUMIN 4.4 g/dL (3.4-5.0); ANION GAP 14 mmol/L (5-15); CHLORIDE 100 mmol/L (98-107)
[2021-05-04 01:51] LABS: ALANINE AMINOTRANSFERASE 64 U/L (12-78); ALKALINE PHOSPHATASE 135 U/L (45-117); BILIRUBIN,TOTAL 0.9 mg/dL (0.2-1.0); CREATININE 0.92 mg/dL (0.7-1.3)
--- NOTE | 2021-05-04 02:58 | NUR ---
pt presents to ER for pancreatitis, pt states he has chronic pancreatitis and this flare has been going on for 2 days now, pt states he is experiencing pain, nausea and pressure in his chest
[2021-05-04] MEDS ORDERED: LACTATED RINGERS 1,000 ML IVBOLUS ONE (03:00)
[2021-05-04] MEDS ORDERED: MORPHINE SULFATE 4 MG/ML, 1ML IVPush ONE (03:00)
[2021-05-04] MEDS ORDERED: ONDANSETRON 2MG/ML, 2ML ONE (03:11)
[2021-05-04] MEDS ORDERED: MORPHINE SULFATE 4 MG/ML, 1ML ONE ×2 (03:12→05:01)
[2021-05-04] MEDS ORDERED: OMNIPAQUE 350 MG/ML, 100ML BOTTLE ONE (03:47)
[2021-05-04] MEDS ORDERED: MORPHINE SULFATE 4 MG/ML, 1ML IVPush PRN (06:00)
[2021-05-04] MEDS ORDERED: HYDROmorphone 2 MG/ML, 1ML IV ONE (06:30)
[2021-05-04] MEDS ORDERED: HYDROmorphone 2 MG/ML, 1ML ONE (07:07)
--- NOTE | 2021-05-04 07:10 | NUR ---
REPORT RECEIVED, CARE ASSUMED. PT LAYING ON GURNEY, C/O 04/28 ABD TO BACK PAIN. MEDICATED ORDERED. PT SB PER MONITOR. AUTO BP AND PULSE OX IN PLACE. DENIES HX OF HTN. AWAITING ROOM ASSIGNMENT.
--- NOTE | 2021-05-04 07:22 | NUR ---
DISCUSSED WITH DR COY PT BP TRENDING UP. PT DENIES HX OF HTN. NO NEW ORDERS. "CONTINUE WITH PAIN CONTROL"
--- NOTE | 2021-05-04 07:25 | NUR ---
REPORT CALLED TO BERNA MOSHER. POC DISCUSSED.
[2021-05-04] MEDS ORDERED: NICOTINE 21 MG/24 HR PATCH.TD24 TD ONE (08:00)
[2021-05-04] MEDS: ENOXAPARIN 40 MG/0.4 ML SQ SCH ×2 (08:00→08:34)
[2021-05-04] MEDS ORDERED: ONDANSETRON ODT 4 MG PO PRN (08:00)
[2021-05-04] MEDS ORDERED: POLYETHYLENE GLYCOL 17 GM PACKET PO PRN (08:00)
[2021-05-04] MEDS ORDERED: ACETAMINOPHEN 500 MG TABLET PO PRN (08:00)
[2021-05-04 08:20] VITALS: BP 167/117
[2021-05-04 08:23] VITALS: BP 167/105
[2021-05-04] MEDS: SENNA/DOCUSATE TABLET PO SCH (08:25)
[2021-05-04] MEDS: ONDANSETRON 2MG/ML, 2ML IVPush PRN ×2 (08:33→15:17)
[2021-05-04] MEDS: morphine SULFATE 10 MG/ML, 1ML IVPush PRN ×5 (08:34→21:20)
[2021-05-04] MEDS: LACTATED RINGERS 1,000 ML IV SCH ×3 (08:35→21:21)
[2021-05-04] MEDS: OXYcodone/APAP 5/325MG TABLET PO PRN ×3 (13:02→21:19)
[2021-05-04 13:57] VITALS: BP 180/110
[2021-05-04 14:06] LABS: AMPHETAMINE SCREEN, URINE Negative (Negative); BARBITURATE SCREEN, URINE Negative (Negative); BENZODIAZEPINE SCREEN, URINE Negative (Negative); CANNABINOID SCREEN, URINE Positive (Negative); COCAINE SCREEN, URINE Negative (Negative); METHADONE SCREEN, URINE Negative (Negative); OPIATE SCREEN, URINE Positive (Negative)
[2021-05-04 18:55] VITALS: BP 186/98
[2021-05-04 20:33] VITALS: BP 160/100
[2021-05-05 00:34] VITALS: BP 146/96
[2021-05-05] MEDS: morphine SULFATE 10 MG/ML, 1ML IVPush PRN ×7 (00:46→21:16)
[2021-05-05] MEDS: OXYcodone/APAP 5/325MG TABLET PO PRN ×5 (01:27→21:18)
[2021-05-05] MEDS: LACTATED RINGERS 1,000 ML IV SCH ×3 (04:28→17:56)
[2021-05-05 05:21] LABS: BASOPHILS % (AUTO) 0 % (0-1); EOSINOPHILS % (AUTO) 3 % (1-7); LYMPHOCYTES % (AUTO) 21 % (22-44); MEAN CORPUSCULAR HEMOGLOBIN 32.2 pg (27.5-34.5); MEAN CORPUSCULAR HGB CONC 34.1 g/dL (33.2-36.2); MEAN PLATELET VOLUME 10.1 fL (7.4-10.4); MONOCYTES % (AUTO) 8 % (2-9); NEUTROPHILS % (AUTO) 68 % (42-75); PLATELET COUNT 113 x10^3/uL (130-400); RED BLOOD COUNT 4.62 x10^6/uL (4.38-5.82); RED CELL DISTRIBUTION WIDTH 13.7 % (9.4-14.8)
[2021-05-05 05:34] LABS: ALANINE AMINOTRANSFERASE 37 U/L (12-78); ALBUMIN 3.1 g/dL (3.4-5.0); ANION GAP 5 mmol/L (5-15); CALCIUM 8.4 mg/dL (8.5-10.1); CHLORIDE 104 mmol/L (98-107)
[2021-05-05 05:36] LABS: ALKALINE PHOSPHATASE 100 U/L (45-117); BILIRUBIN,TOTAL 0.7 mg/dL (0.2-1.0); TOTAL PROTEIN 6.2 g/dL (6.4-8.2)
[2021-05-05 07:41] VITALS: BP 144/95
[2021-05-05] MEDS: ENOXAPARIN 40 MG/0.4 ML SQ SCH (08:00)
[2021-05-05] MEDS: SENNA/DOCUSATE TABLET PO SCH (08:05)
[2021-05-05] MEDS: NICOTINE 21 MG/24 HR PATCH.TD24 TD SCH (08:30)
[2021-05-05] MEDS ORDERED: NICOTINE 21 MG/24 HR PATCH.TD24 TD SCH (09:00)
[2021-05-05] MEDS: ONDANSETRON 2MG/ML, 2ML IVPush PRN (11:05)
[2021-05-05 12:23] VITALS: BP 145/82
[2021-05-05 20:16] VITALS: BP 148/89
[2021-05-06 00:31] VITALS: BP 152/91
[2021-05-06] MEDS: OXYcodone/APAP 5/325MG TABLET PO PRN ×6 (00:56→22:47)
[2021-05-06] MEDS: morphine SULFATE 10 MG/ML, 1ML IVPush PRN ×6 (00:57→22:50)
[2021-05-06] MEDS: LACTATED RINGERS 1,000 ML IV SCH ×3 (00:58→13:00)
[2021-05-06 05:48] LABS: BASOPHILS % (AUTO) 1 % (0-1); EOSINOPHILS % (AUTO) 4 % (1-7); LYMPHOCYTES % (AUTO) 28 % (22-44); MEAN CORPUSCULAR HEMOGLOBIN 33.4 pg (27.5-34.5); MEAN CORPUSCULAR HGB CONC 34.8 g/dL (33.2-36.2); MEAN PLATELET VOLUME 10.1 fL (7.4-10.4); MONOCYTES % (AUTO) 8 % (2-9); NEUTROPHILS % (AUTO) 60 % (42-75); PLATELET COUNT 99 x10^3/uL (130-400); RED BLOOD COUNT 4.18 x10^6/uL (4.38-5.82); RED CELL DISTRIBUTION WIDTH 14.2 % (9.4-14.8)
[2021-05-06 06:01] LABS: ALBUMIN 2.9 g/dL (3.4-5.0); ANION GAP 8 mmol/L (5-15); CALCIUM 8.3 mg/dL (8.5-10.1); CHLORIDE 101 mmol/L (98-107)
[2021-05-06 06:06] LABS: ALANINE AMINOTRANSFERASE 31 U/L (12-78); ALKALINE PHOSPHATASE 93 U/L (45-117); BILIRUBIN,TOTAL 1.5 mg/dL (0.2-1.0); CREATININE 0.57 mg/dL (0.7-1.3); TOTAL PROTEIN 6.1 g/dL (6.4-8.2)
[2021-05-06 06:48] VITALS: BP 126/91
[2021-05-06] MEDS: SENNA/DOCUSATE TABLET PO SCH (07:51)
[2021-05-06] MEDS: ENOXAPARIN 40 MG/0.4 ML SQ SCH (07:51)
[2021-05-06] MEDS: NICOTINE 21 MG/24 HR PATCH.TD24 TD SCH (09:41)
[2021-05-06 13:51] VITALS: BP 141/97
[2021-05-06 18:40] VITALS: BP 143/96
[2021-05-07 01:42] VITALS: BP 159/91
[2021-05-07] MEDS: OXYcodone/APAP 5/325MG TABLET PO PRN ×3 (03:08→11:01)
[2021-05-07] MEDS: morphine SULFATE 10 MG/ML, 1ML IVPush PRN ×2 (03:14→06:56)
[2021-05-07 07:35] VITALS: BP 151/91
[2021-05-07] MEDS: ENOXAPARIN 40 MG/0.4 ML SQ SCH (08:00)
[2021-05-07] MEDS: SENNA/DOCUSATE TABLET PO SCH (09:00)
[2021-05-07] MEDS: LACTATED RINGERS 1,000 ML IV SCH (09:40)
[2021-05-07] MEDS: NICOTINE 21 MG/24 HR PATCH.TD24 TD SCH (09:50)
[2021-05-07] MEDS ORDERED: OXYC-302 PO (10:43)
[2021-05-07] MEDS ORDERED: ONDA4TAB13 SL (10:43)
[2021-05-07] MEDS ORDERED: OXYC5TAB2 PO ×2 (10:44)
== END 2021-05-07 13:43 | disposition home or self-care (01) | DRG 440 ==
LOC: ED 03:08 → EDIP 06:39 → 3N 07:55
PROVIDERS: ADMIT Family Medicine; ATTEND Family Medicine
DX: K85.00 Idiopathic acute pancreatitis without necrosis or infection (principal); K76.0 Fatty (change of) liver, not elsewhere classified; F17.200 Nicotine dependence, unspecified, uncomplicated; F12.10 Cannabis abuse, uncomplicated; K86.1 Other chronic pancreatitis; Z79.899 Other long term (current) drug therapy
CPT/HCPCS: 36415; 74177; 80053; 80307; 83690; 85025; 96361; 96374; 96375; G0378; J1170; J1650; J2405; Q9967; J2270; J7120